=== PATIENT | male | born 1985 | race Hispanic/Latino ===

== ENCOUNTER 2021-08-26 12:18 | Emergency (ER) | payer OTHER, SELFPAY ==
[2021-08-26 12:19] VITALS: BP 112/95; PULSE 76; RESP 16; TEMP 36.4; O2SAT 100; BMI 26.2
--- NOTE | 2021-08-26 12:30 | RAD_ITS ---
STUDY: X-RAY - LEFT HAND, ATTENTION LEFT THUMB. REASON FOR EXAM: Male, 36 years old. INJURY TECHNIQUE: History view(s) of the finger were obtained. COMPARISON: None. FINDINGS: Normal metacarpal head. Normal metacarpophalangeal joint. Normal proximal phalanx. Normal middle phalanx. Normal distal phalanx. Normal distal interphalangeal joint. Soft tissue laceration. RAD/Finger(s) Min 2 Views IMPRESSION: Soft tissue laceration. No bony abnormality is seen. Electronically Signed: Michele Lantigua MD at 12:44 EST , Service support ,
[2021-08-26] MEDS: Diphth,Pertuss(Acell),Tet Vac 0.5 ML Vial IM (14:59)
[2021-08-26] MEDS: Lidocaine 1% (20 ml mdv) 20 ML Vial INFILT (15:00)
--- NOTE | 2021-08-26 17:13 | EX.ED.UPPERE ---
HPI History of Present Illness Chief Complaint: Laceration Informant: patient Narrative Narrative: [id number] male presents work injury prior to arrival. 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 He states as he was cutting excellently hit his left thumb. Seen at urgent care was sent here for evaluation. No past medical history. No allergies. Tetanus just over 5 years ago. No other injuries. No paresthesias. Tetanus Immunization: 5-10 years Prior similar symptoms: No PFSH PFSH Home Medications cephalexin 500 mg PO Q6 #21 cap 08/26/21 [Rx Last Taken Unknown] Allergy/AdvReac Type Severity Reaction Status Date / Time No Known Allergies Allergy Verified 08/26/21 12:23 Social History Smoking Status: Current every day smoker tobacco type: cigarettes ROS ROS ED Constitutional Constitutional ED: Denies chills, fever(s) or sweats Eyes Eyes: Denies change in vision ENT ENT ED: Denies dysphagia or sore throat Cardiovascular Cardiovascular: Denies chest pain, leg edema, palpitations or racing heartbeat Respiratory/Chest Respiratory/Chest: Denies cough, dyspnea or dyspnea on exertion Gastrointestinal Gastrointestinal: Denies abdominal pain, diarrhea, nausea or vomiting Genitourinary Genitourinary ED: Denies dysuria, hematuria or urinary frequency Musculoskeletal Musculoskeletal: Reports other; Denies back pain, extremity pain or neck pain Integumentary Reports other Details: Left thumb laceration ; Denies rash or wounds Neurologic Neurologic: Denies headache(s), paresthesias or weakness EXAM Physical Exam Const Vital Signs: 08/26/21 12:19 Temperature 97.5 F L Temperature Source Temporal Pulse Rate 76 Respiratory Rate 16 Blood Pressure 112/95 H Blood Pressure Mean 100 Pulse Ox 100 Oxygen Delivery Method Room Air Positive well nourished and well developed General Appearance ED: well developed and NAD HEENT Reports moist mucous membranes normocephalic and atraumatic Eyes PERRL, EOMs intact bilaterally and conjunctivae normal General Eye ED: Yes normal appearance of both eyes Neck no lymphadenopathy and supple General: Negative for tenderness Chest Wall Chest: Negative for tenderness Resp normal respiratory effort and normal air movement Effort and Inspection: symmetric chest movement; Negative for respiratory distress Cardio regular rate, regular rhythm and no murmurs Peripheral Pulses: pulses 2+ throughout GI normal to inspection, nondistended, normoactive bowel sounds and non-tender Palpation: Negative for guarding or rebound tenderness present Back/Spine no CVA tenderness and no thoracic nor lumbar tenderness Extremity Extremity Narrative: Left hand examination thumb examination. 2 cm laceration dorsal aspect proximal phalanx of the left thumb. Patient able to abduct thumb with good strength. With extensor time he is able to extend however against resistance there was weakness. No paresthesias. No active bleeding. No General Extremety ED: Negative for edema or tenderness General Extremity: Negative for edema Neuro oriented x3 and no sensory deficits noted Sensorium / Orientation: awake and alert Skin no rashes or lesions noted and no wounds MDM MDM MDM Narrative Medical decision making narrative: X-ray satting okay if not of the left hand obtained from triage negative for any acute process. Tetanus updated. Clinical examination with his laceration concerning for an extensor pollicis injury. I spoke with orthopedist on-call Dr. Quintero, discussed the concerns. He was in the hospital and evaluated the patient in the ED. He concurs with findings. The extensor tendon was repaired in the ED. See his note for evaluation and repair. He was placed into a thumb spica by Dr. Quintero. Requested antibiotics being started with Keflex. This was ordered. 7-day supply given. Appropriate work restrictions with follow-up with orthopedics in 1 week as an outpatient. Use Tylenol or Motrin as needed. All questions were answered. Radiography Diagnostic Testing: Clinical Impression(s) from Imaging Studies Finger X-Ray 08/26/21 12:30 IMPRESSION: Soft tissue laceration. No bony abnormality is seen. Electronically Signed: Michele Lantigua MD at 12:44 EST , Service support , Discharge Plan Triage Chief Complaint: Laceration ED Provider: Juan Schultz Dx/Rx/DC Orders Clinical Impression: Laceration of left thumb with complication, Extensor tendon ligament laxity of left hand, Need for Tdap vaccination Instructions: ED Laceration, Hand: All Closures, ED Tendon Laceration Prescriptions: New cephalexin [cephalexin] 500 MG capsule 500 mg PO Q6 Qty: 21 RF: 0 Primary Care Provider: Care Physician,No Primary Referrals: Wilmer Quintero DO [STAFF PHYSICIAN] - 1 Week Care Physician,No Primary [Primary Care Provider] - Disposition Disposition: Home, Self Care
[2021-08-26] MEDS: Cephalexin 250 MG Capsule 500 MG PO (17:20)
--- NOTE | 2021-08-26 17:31 | CONS.ORTHO ---
HPI Consult Data Date of Consult: 08/26/21 HPI Narrative HPI Narrative: DAWSON LANDEROS, is a 36 M who presents to 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 He states the knife slipped and went through the dorsum of his left hand. Patient is right-hand dominant. Denies any numbness or tingling in the thumb or hand. Denies previous injury. PFSH Home Medications cephalexin 500 mg PO Q6 #21 cap 08/26/21 [Rx Last Taken Unknown] Allergy/AdvReac Type Severity Reaction Status Date / Time No Known Allergies Allergy Verified 08/26/21 12:23 Social History Smoking Status: Current every day smoker tobacco type: cigarettes ROS ROS Narrative 10 point review of systems obtained, negative unless otherwise noted in HPI. Vital Signs Vital Signs Vital Signs: 08/26/21 12:19 Temperature 97.5 F L Temperature Source Temporal Pulse Rate 76 Respiratory Rate 16 Blood Pressure 112/95 H Blood Pressure Mean 100 Pulse Ox 100 Oxygen Delivery Method Room Air Weight Weight: 152 lb 8.958 oz Body Mass Index (BMI) 26.2 Physical Exam Narrative General -A&Ox3, NAD, appears stated age. Vital signs stable, afebrile. Respiratory -normal work of breathing, no intercostal retractions. CV -pulses regular, brisk capillary refill ?4 limbs. Abdomen-soft, nontender, nondistended. No guarding, rigidity, rebound tenderness. Left hand-2 cm oblique laceration full-thickness noted overlying the proximal phalanx of the left thumb. Patient can weakly extend his interphalangeal joint but there is extensor lag noted. Sensation intact throughout. Brisk capillary refill in the digit. Radial pulse 2+. Radiology Impression Finger X-Ray 08/26/21 12:30 IMPRESSION: Soft tissue laceration. No bony abnormality is seen. Electronically Signed: Michele Lantigua MD at 12:44 EST , Service support , Assessment & Plan Assessment/Plan (1) Laceration of left thumb with complication: PLAN: Suspicion of left extensor pollicis longus tendon laceration. I recommended surgical exploration and possible extensor pollicis longus tendon repair. Informed consent obtained. See operative note for full details. Patient tolerated procedure well without complication. Placed in thumb spica plaster splint. 1 week of Keflex per emergency room physician. Follow-up with me next week. Nonweightbearing to the operative extremity. Maintain splint till follow-up. Keep it clean dry and intact.
--- NOTE | 2021-08-26 17:35 | OP.PCM_ITS ---
Problems Associated Problem List Diagnoses (1) Laceration of left thumb with complication: Report of Operation Date of Procedure: 08/26/21 Description of Surgical Findings:: Preoperative diagnosis: Laceration left thumb was suspected extensor pollicis longus tendon laceration Postoperative diagnosis: Full-thickness laceration left thumb with zone 2 laceration extensor pollicis longus tendon Procedures: 1. Laceration repair 2 cm full-thickness skin laceration 2. Zone 2 of the thumb extensor pollicis longus tendon repair 3. 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 He was unable to fully extend his interphalangeal joint with noted extensor lag and weakness. I was referred from the emergency department. I evaluated the patient with high index of suspicion for an extensor pollicis longus tendon laceration. I recommended surgical exploration of the laceration with possible EPL tendon repair. Informed consent was obtained. IV antibiotics and tetanus were administered in the emergency department by the emergency room physician. Description of procedure: We first performed a timeout with all parties in attendance in agreement the side, site, operation be performed. No concerns were voiced and elected proceed. I first prepped the hand with Betadine. Identified the laceration. I extended laceration approximately 1 cm distal to centimeters proximal. I elevated full-thickness skin flaps. These were sutured in place with nylon suture. The distal stump of the tendon appeared to be well- positioned. The proximal segment had retracted approximately 1 cm although 10% of the tendon appeared intact. I completed the full-thickness laceration. A 22-gauge needle was used to position the EPL proximal segment in a position of no tension at appropriate length. I then proceeded with a modified Nelson repair with 3-0 Ethibond suture. I reinforced this with 2 simple [id number] sutures. In total, 8 core sutures were placed across the laceration. I took the patient through range of motion including flexion and active extension of the digit. No significant gap formation was noted. Full extension of the interphalangeal joint was noted. I then copiously irrigated the wound with normal saline. Nylon sutures were removed. I reapproximate the skin and horizontal mattress fashion with 4-0 nylon suture. Sterile compression dressing was applied. I placed a well-padded thumb spica plaster splint to pr otect the repair. Patient tolerated procedure well without complication. Postoperative plan: Patient will be nonweightbearing to the operative extremity. Maintain splint until follow-up with me in 1 week. Keep it clean dry and intact. Elevation recommended of the thumb and hand. Keflex x7 days prescribed by emergency room physician. Follow-up with me in 1 week.
== END 2021-08-26 17:26 | disposition home or self-care (01) ==
PROVIDERS: Emergency Provider Emergency Medicine
DX: S66.222A Laceration of extensor muscle, fascia and tendon of left thumb at wrist and hand level, initial encounter (principal); S61.012A Laceration without foreign body of left thumb without damage to nail, initial encounter; Z23 Encounter for immunization; W26.0XXA Contact with knife, initial encounter; Y93.9 Activity, unspecified; Y92.9 Unspecified place or not applicable; Y99.0 Civilian activity done for income or pay; F17.210 Nicotine dependence, cigarettes, uncomplicated
CPT/HCPCS: 26356; 29125; 73140; 90715; 99283